=== PATIENT | female | born 1970 | race Two or more races ===

== ENCOUNTER 2024-04-17 13:58 | Emergency (ER) | payer OTHER ==
[~2024-04-17] VITALS: Ht 152.4 cm; Wt 63.5 kg
[2024-04-17] MEDS ORDERED: DEXAMETHASONE SODIUM PHOSPHATE 4 MG/ML VIAL IM STA (16:19)
[2024-04-17] MEDS ORDERED: ORPHENADRINE CITRATE 30 MG/ML AMPUL IM STA (16:19)
== END 2024-04-17 20:16 | disposition home or self-care (01) ==
LOC: ER 14:01
DX: M54.2 Cervicalgia (principal); R51.9 Headache, unspecified

== ENCOUNTER 2024-04-20 13:40 | Outpatient (CLI) | payer OTHER | END 2024-04-20 13:43 | disposition home or self-care (01) | LOC: MRI 13:40 | DX: R51.9 Headache, unspecified (principal) | CPT/HCPCS: 70551 ==